=== PATIENT | female | born 1970 | race Caucasian/White ===

== ENCOUNTER 2022-01-09 12:33 | Emergency (ER) | payer OTHER, SELFPAY ==
[2022-01-09 12:40] VITALS: BP 107/67; PULSE 106; RESP 22; TEMP 37.4; O2SAT 90; BMI 26.3
== END 2022-01-09 16:12 | disposition left against medical advice (07) ==
PROVIDERS: PCP Physician Assistant Medical
DX: Z53.21 Procedure and treatment not carried out due to patient leaving prior to being seen by health care provider (principal)
CPT/HCPCS: 99281

== ENCOUNTER 2022-01-09 21:27 | Emergency (ER) | payer OTHER, SELFPAY ==
[2022-01-09] VITALS (8 sets, daily range): BP systolic 132; BP diastolic 78; PULSE 84–97; RESP 20; TEMP 36.7; O2SAT 86–99; BMI 22.3
--- NOTE | 2022-01-09 22:21 | CRLHL7_ITS ---
For Patients: As a result of the Cures Act, medical imaging exams and procedure reports are released immediately into your electronic medical record. You may view this report before your referring provider. If you have questions, please contact your health care provider. INDICATION: Cough and fever. TECHNIQUE: Chest 2 views. COMPARISON: June 19, 2021. FINDINGS: Cardiovascular and mediastinum: Cardiomediastinal silhouette is within normal limits. Lungs and pleural spaces: Bibasilar interstitial opacities are identified. No sign of pleural effusion. No pneumothorax. Bones and soft tissues: No significant findings. IMPRESSION: Bilateral basilar interstitial opacities, can be seen in setting of infection, aspiration or atelectasis. Dictated by Carrillo Schmitt MD @ 01/09/2022 11:48:45 PM (Electronically Signed)
--- NOTE | 2022-01-09 22:24 | ED.SOB ---
HPI - SOB/Dyspnea General Chief Complaint: Shortness of Breath/Dyspnea Stated Complaint: Respiratory infection Time Seen by Provider: 01/09/22 22:05 History of Present Illness HPI Narrative: 52-year-old woman presenting to the emergency department with complaint of increasing shortness of breath. No chest pain. No fever. She has also been having cough that is mildly productive. These symptoms have been increasing over the last week. She does endorse a history of COPD. Sounds as though has an asthma diagnosis. I note her oxygen saturation of 90% and that does not seem to be surprising to them. Apparently monitor at home. Unclear what her baseline actually is though. She notes she does have oxygen available but does not use it as well as other nebulizations that she says are just sold his does not think she should read pre COVID she said she got pneumonia and then was having to drag hormone his oxygen tanks and that was the 1st time she had used that. Is vaccinated and boosted for COVID. Continues to smoke cigarettes saying ?yeah yeah I know I should quit'. Her significant other who accompanies her here today apparently has managed to quit. Gestures to maxillary sinus area noting they have been full. Does have a history of psoriasis and ichthyosis. Her right ear has been bugging her. Related Data Home Medications Medication Instructions Recorded Confirmed albuterol sulfate 90 mcg/actuation 2 inhalation PRN 09/15/21 12/03/21 aerosol inhaler amlodipine 5 mg tablet mg PO DAILY 09/15/21 12/03/21 calcipotriene 0.005 % topical 0.005 topical BID 09/15/21 12/03/21 ointment famotidine 20 mg tablet mg PO DAILY 09/15/21 12/03/21 fluticasone propionate 100 2 inhalation BID 09/15/21 12/03/21 mcg/actuation blister powder for inhalation gabapentin 800 mg tablet mg PO BID PRN 09/15/21 12/03/21 ipratropium 0.5 mg-albuterol 3 mg 1 ml inhalation PRN 09/15/21 12/03/21 (2.5 mg base)/3 mL nebulization soln losartan 50 mg tablet mg PO DAILY 09/15/21 12/03/21 secukinumab 150 mg/mL subcutaneous 150 mg subcut Q2W 09/15/21 12/03/21 syringe urea 40 % topical cream 40 applic topical DAILY 09/15/21 12/03/21 secukinumab 150 mg/mL subcutaneous 150 mg subcut Q4W 10/22/21 12/03/21 syringe (Cosentyx) Previous Rx's Medication Instructions Recorded triamcinolone acetonide 0.1 % 1 applic topical BID #454 grams 09/15/21 topical cream secukinumab 150 mg/mL subcutaneous 300 mg (2 mL) subcut Q4W #2 mL 10/22/21 syringe (Cosentyx 300 mg/2 Syringes () ipratropium 0.5 mg-albuterol 3 mg 3 ml inhalation QID #90 mL 01/10/22 (2.5 mg base)/3 mL nebulization soln Allergies Allergy/AdvReac Type Severity Reaction Status Date / Time azithromycin Allergy Intermediate flu Verified 12/03/21 11:58 symptoms duloxetine Allergy Mild felt ill Verified 12/03/21 11:58 CI Pigment Blue 63 Allergy Mild felt ill Uncoded 12/03/21 11:58 Review of Systems Status of ROS: Reports: 10 or more systems reviewed and unremarkable except as noted in History and below [facility] Medical History Aneurysm Surgical History History of colonoscopy History of endometrial ablation History of lumpectomy of left breast History of operative procedure on hip History of right knee surgery History of surgery of head History of tubal ligation Status post colposcopy (10/09/21) Family History Unknown Alcohol dependence Cancer Other Diabetes High blood pressure Social History Narrative: Single, has a boyfriend alcohol ingestion, 1-4 drinks/week history of methamphetamine abuse- sober since 2016 smoker- half pack per day for several years Smoking Status: Current every day smoker What tobacco products do you use: cigarettes Smoking packs per day: 0.5 Smoking cigarettes per day: 10.0 Do you use any of these nicotine containing products: None Second hand tobacco smoke exposure: No How often do you have a drink containing alcohol: 2-3 times a week How many standard drinks containing alcohol do you have on a typical day: 3 or 4 How often do you have six or more drinks on one occasion: Never AUDIT-C Alcohol total score: 4 Non-prescribed substance use: denies use Exam Narrative: Exam Narrative: very pleasant. She is not particularly tachypneic. She is maybe mildly labored in breathing. Able to converse pretty easily. Voice is a little laryngitis. Hair is dyed bright red orange. Skin is warm and diffusely dry and scaling. Generally small stature. Oropharynx is unremarkable. Neck is supple. No lymphadenopathy. Face is without swelling or erythema. Not tender to palpation. TMs bilaterally are clear. , no edematous or scaling changes in the ear canals. Lungs with diminished sounds and movement. There is and expiratory crepitus. I do not appreciate any wheeze. Extremities are without edema. Cardiovascular regular rate and rhythm. Distant. Abdomen is protuberant soft and nontender. Const: Vital Signs, click to edit/add: Vital Signs - 24 hr 01/09/22 21:36 01/09/22 22:37 01/09/22 22:48 Temperature 98.0 F Pulse Rate [Right Pulse Oximeter] 90 97 Respiratory Rate 20 Blood Pressure [Ri ght Upper Arm] 132/78 Pulse Oximetry 90 93 86 L Oxygen Delivery Me thod Room Air Room Air Oxygen Flow Rate 01/09/22 23:07 01/09/22 23:08 01/09/22 23:24 Temperature Pulse Rate [Right Pulse Oximeter] 94 95 Respiratory Rate Blood Pressure [Ri ght Upper Arm] Pulse Oximetry 93 93 90 Oxygen Delivery Me thod Nasal Cannula Nasal Cannula Nasal Cannula Oxygen Flow Rate 1.5 1.5 1.5 01/09/22 23:43 01/09/22 23:59 Temperature Pulse Rate [Right Pulse Oximeter] 84 Respiratory Rate Blood Pressure [Ri ght Upper Arm] Pulse Oximetry 95 99 Oxygen Delivery Me thod Nasal Cannula Nasal Cannula Oxygen Flow Rate 1.5 1.5 Documenting provider has reviewed patient's vital signs: yes Course Course Hospital Course: Will screen for infectious etiology. She initially said that just need some antibiotics that they will kick this. Appears to be having COPD exacerbation as well. Will be receiving a DuoNeb and steroids pending results of imaging. Reevaluation(s) Reevaluation #1: Oxygen saturations improved with forehead measurements 0+ not as good. Mid 90s oxygen % more consistent with labs and clinical picture. Mildly elevated white count. Chest x-ray reviewed by me I think is primarily atelectatic changes though maybe with a wisp of infiltrate in left lower lung at the cardiac border. Radiology over-read as below IMPRESSION: Bilateral basilar interstitial opacities, can be seen in setting of infection, aspiration or atelectasis. Feeling better. I think it is good to be prudent in this case and provide antibiotics. She declined IV antibiotics partly with desire for earlier departure Vital Signs Vital signs: Initial Vital Signs Temperature 98.0 F 01/09/22 21:36 Temperature Source Temporal Artery Scan 01/09/22 21:36 Pulse Rate 90 01/09/22 21:36 Respiratory Rate 20 01/09/22 21:36 Blood Pressure 132/78 01/09/22 21:36 Blood Pressure Mean 96 01/09/22 21:36 Blood Pressure Position Sitting 01/09/22 21:36 Pulse Oximetry 90 01/09/22 21:36 Oxygen Delivery Method 01/09/22 21:36 Vital Signs Temperature 98.0 F 01/09/22 21:36 Pulse Rate 90 01/09/22 21:36 Respiratory Rate 20 01/09/22 21:36 Blood Pressure 132/78 01/09/22 21:36 Pulse Oximetry 90 01/09/22 21:36 Oxygen Delivery Method 01/09/22 21:36 Temperature 98.0 F 01/09/22 21:36 Pulse Rate 84 01/09/22 23:43 Respiratory Rate 20 01/09/22 21:36 Blood Pressure 132/78 01/09/22 21:36 Pulse Oximetry 99 01/09/22 23:59 Oxygen Delivery Method 01/09/22 23:59 Oxygen Flow Rate 1.5 01/09/22 23:59 MDM - SOB/Dyspnea MDM Narrative Medical decision making narrative: I think combination of being a smoker, ichthyosis and psoriasis leading to poor oximetry readings on initial evaluation. More central monitoring seems more in line with physical picture. Lab Data Attestation: I reviewed the patient's lab results. Labs: Lab Results 01/09/22 01/09/22 01/09/22 Range/Units 22:30 22:35 22:35 WBC 12.55 H (4.50-11.00) K/uL RBC 3.80 L (4.00-5.20) m/uL Hgb 12.0 (12.0-16.0) gm/dL Hct 36.3 (33.0-51.0) % MCV 96 (80-100) fL MCH 32 (26-34) pg MCHC 33 (32-36) gm/dL RDW Coeff of Naeem 11.8 (11.5-15.5) % Plt Count 339 (140-440) K/uL Neut % (Auto) 71.7 (42.0-72.0) % Lymph % (Auto) 16.7 L (20-44) % Bowman % (Auto) 10.0 (0.0-11.0) % Eos % (Auto) 0.3 (0.0-7.0) % Baso % (Auto) 0.4 (0.0-3.0) % Neut # (Auto) 9.00 H (1.7-7.0) K/uL Lymph # (Auto) 2.10 (0.90-2.90) K/uL Bowman # (Auto) 1.30 H (0.00-0.90) K/UL Eos # (Auto) 0.00 (0.00-0.50) K/uL Baso # (Auto) 0.10 (0.00-0.30) K/uL Abs Immat Gran (auto) 0.11 (0.00-0.30) K/uL VBG pH (7.32-7.43) VBG pCO2 (40-50) mmHG VBG pO2 (25-47) mmHG VBG HCO3 (21-28) mmol/L Sodium 137 (135-149) mmol/L Potassium 4.2 (3.6-5.1) mmol/L Chloride 99 (96-114) mmol/L Carbon Dioxide 27 (20-32) mmol/L BUN 11 (7-30) mg/dL Creatinine 0.7 (0.5-1.5) mg/dL Estimated Creat Clear 81.18 Estimated GFR 104 ml/min Glucose 113 (60-115) mg/dL Calcium 9.2 (8.4-10.6) mg/dL C-Reactive Protein 17.2 H (0.5-1.0) mg/dL NT-Pro-B Natriuret Pep (0-125) PG/mL SARS-CoV-2 (PCR) Negative SARS-CoV-2 (Negative) Influenza Type A (PCR) Negative PCR FLU A (Negative) Influenza Type B (PCR) Negative PCR FLU B (Negative) RSV (PCR) Negative PCR RSV (Negative) 01/09/22 01/09/22 Range/Units 22:35 22:35 WBC (4.50-11.00) K/uL RBC (4.00-5.20) m/uL Hgb (12.0-16.0) gm/dL Hct (33.0-51.0) % MCV (80-100) fL MCH (26-34) pg MCHC (32-36) gm/dL RDW Coeff of Naeem (11.5-15.5) % Plt Count (140-440) K/uL Neut % (Auto) (42.0-72.0) % Lymph % (Auto) (20-44) % Bowman % (Auto) (0.0-11.0) % Eos % (Auto) (0.0-7.0) % Baso % (Auto) (0.0-3.0) % Neut # (Auto) (1.7-7.0) K/uL Lymph # (Auto) (0.90-2.90) K/uL Bowman # (Auto) (0.00-0.90) K/UL Eos # (Auto) (0.00-0.50) K/uL Baso # (Auto) (0.00-0.30) K/uL Abs Immat Gran (auto) (0.00-0.30) K/uL VBG pH 7.424 (7.32-7.43) VBG pCO2 44 (40-50) mmHG VBG pO2 116.0 H (25-47) mmHG VBG HCO3 29 H (21-28) mmol/L Sodium (135-149) mmol/L Potassium (3.6-5.1) mmol/L Chloride (96-114) mmol/L Carbon Dioxide (20-32) mmol/L BUN (7-30) mg/dL Creatinine (0.5-1.5) mg/dL Estimated Creat Clear Estimated GFR ml/min Glucose (60-115) mg/dL Calcium (8.4-10.6) mg/dL C-Reactive Protein (0.5-1.0) mg/dL NT-Pro-B Natriuret Pep 127 H (0-125) PG/mL SARS-CoV-2 (PCR) (Negative) Influenza Type A (PCR) (Negative) Influenza Type B (PCR) (Negative) RSV (PCR) (Negative) Discharge Plan Discharge Clinical Impression: COPD exacerbation, Pneumonia Patient Disposition: Home w/ Parent or Adult Condition: Improved Additional Instructions: Stay hydrated. Use the DuoNeb inhalations 4 times daily over the next 4 days. (takes this nebulizer tubing and atomizer cup with you) It does not hurt to try the nebulization medications that you have. If you have effective DuoNebs, you can use them otherwise there is a new prescription waiting for at the pharmacy. Please follow-up in primary care as soon as possible to discuss optimal treatment for COPD. Take the prednisone as 60 mg tomorrow later today, then 40 mg daily for 3 days then 20 mg daily for 3 days. The prednisone and doxycycline from [facility]. Prescriptions: New ipratropium-albuterol 0.5 mg-3 mg(2.5 mg base)/3 mL solution for nebulization 3 ml inhalation QID Qty: 90 1RF No Action secukinumab 150 mg/mL syringe 150 mg subcut Q2W ipratropium-albuterol 0.5 mg-3 mg(2.5 mg base)/3 mL solution for nebulization 1 ml inhalation PRN albuterol sulfate 90 mcg/actuation HFA aerosol inhaler 2 inhalation PRN gabapentin 800 mg tablet PO BID PRN amlodipine 5 mg tablet PO DAILY losartan 50 mg tablet PO DAILY fluticasone propionate 100 mcg/actuation blister with device 2 inhalation BID urea 40 % cream 40 applic topical DAILY famotidine 20 mg tablet PO DAILY calcipotriene 0.005 % ointment 0.005 topical BID triamcinolone acetonide 0.1 % cream 1 applic topical BID Qty: 454 0RF Rx Instructions: apply to affected area Cosentyx 150 mg/mL syringe 150 mg subcut Q4W Cosentyx (2 Syringes) 150 mg/mL syringe 300 mg subcut Q4W Qty: 2 5RF Follow Up/Referrals: Alberta Delacruz PADaisyC [Primary Care Provider] - Stand Alone Forms: MyHealth Info Instructions
--- OUTSIDE RECORDS SUMMARY | 2022-01-09 22:27 | XMS_ITS | Encounter Summary ---
:1970 Author Organization [facility] Address [address] [place] [address] Care Team Providers Name Role Phone No Ref-Primary, Physician Primary Care Provider [phone] Reason for Visit Reason Comments Abdominal Pain Encounter Details Date Type Department Care Team Description 11/15/2018 [facility] Abdominal pain, [facility] Emergency Dep t [facility] generalized [address] [place], [place] [address] [facility] [id number] [facility] [phone] [place] [address] (Wo rk) Social History Tobacco Use Types Packs/Day Years Used Date Smoking Tobacco: Never Assessed Sex Assigned at Date Recorded Not on file documented as of this encounter Last Filed Vital Signs Vital Sign Reading Time Taken Comments Blood Pressure 165/100 11/15/2018 2:42 PM CDT Pulse - - Temperature 36.8 ??C (98.3 ??F) 11/15/2018 11:04 AM CDT Respiratory Rate 15 11/15/2018 2:42 PM CDT Oxygen Saturation 98% 11/15/2018 2:42 PM CDT Inhaled Oxygen Concentration - - Weight 60.8 kg (134 lb) 11/15/2018 11:04 AM CDT Height - - Body Mass Index - - documented in this encounter Discharge Instructions Discharge InstructionsPrem Fang MD - 11/15/2018 2:33 PM CDT Discharge Instructions Abdominal Pain Abdominal pain (belly pain) can be caused by many things. Your evaluation today does not show the exact cause for your pain. Your provider today has decided that it is unlikely your pain is due to a life threatening problem, or a problem requiring surgery or hospital admission. Sometimes those problems cannot be found right away, so it is very important that you follow up as directed. Sometimes only the changes which occur over time allow the cause of your pain to be found. Generally, every Emergency Department visit should have a follow-up clinic visit with either a primary or a specialty clinic/provider. Please follow-up as instructed by your emergency provider today. With abdominal pain, we often recommend very close follow-up, such as the following day. ADULTS: Return to the Emergency Department right away if: You get an oral temperature above 102oF or as directed by your provider. You have blood in your stools. This may be bright red or appear as black, tarry stools. You keep vomiting (throwing up) or cannot drink liquids. You see blood when you vomit. You cannot have a bowel movement or you cannot pass gas. Your stomach gets bloated or bigger. Your skin or the whites of your eyes look yellow. You faint. You have bloody, frequent or painful urination (peeing). You have new symptoms or anything that worries you. CHILDREN: Return to the Emergency Department right away if your child has any of the above-listed symptoms or the following: Pushes your hand away or screams/cries when his/her belly is touched. You notice your child is very fussy or weak. Your child is very tired and is too tired to eat or drink. Your child is dehydrated. Signs of dehydration can be: Significant change in the amount of wet diapers/urine. Your or child starts to have dry mouth and lips, or no saliva (spit) or tears. WOMEN: Return to the Emergency Department right away if you have any of the above-listed symptoms or the following: You have bleeding, leaking fluid or passing tissue from the vagina. You have worse pain or cramping, or pain in your shoulder or back. You have vomiting that will not stop. You have a temperature of 100oF or more. Your baby is not moving as much as usual. You faint. You get a bad headache with or without eye problems and abdominal pain. You have a seizure. You have unusual discharge from your vagina and abdominal pain. Abdominal pain is pretty common during . Your pain may or may not be related to your . You should follow-up closely with your OB provider so they can evaluate you and your baby. Untilyou follow-up with your regular provider, do the following: Avoid sex and do not put anything in your vagina. Drink clear fluids. Only take medications approved by your provider. MORE INFORMATION: Appendicitis: A possible cause of abdominal pain in any person who still has their appendix is acuteappendicitis. Appendicitis is often hard to diagnose. Testing does not always rule out early appendicitis or other causes of abdominal pain. Close follow-up with your provider and re-evaluations may beneeded to figure out the reason for your abdominal pain. Follow-up: It is very important that you make an appointment with your clinic and go to the appointment. If you do not follow-up with your primary provider, it may result in missing an important development which could result in permanent injury or disability and/or lasting pain. If there is any problem keeping your appointment, call your provider or return to the Emergency Department. Medications: Take your medications as directed by your provider today. Before using [id number], ask your provider and make sure to take the medications as directed. If you have any questions about medications, ask your provider. Diet: Resume your normal diet as much as possible, but do not eat fried, fatty or spicy foods while you have pain. Do not drink alcohol or have caffeine. Do not smoke tobacco. Probiotics: If you have been given an antibiotic, you may want to also take a probiotic pill or eat yogurt with live cultures. Probiotics have good bacteria to help your intestines stay healthy. Studies have shown that probiotics help prevent diarrhea (loose stools) and other intestine problems (including C. diff infection) when you take antibiotics. You can buy these without a prescription in the pharmacy section of the store. If you were given a prescription for medicine here today, be sure to read all of the information (including the package insert) that comes with your prescription. This will include important information about the medicine, its side effects, and any warnings that you need to know about. The pharmacist who fills the prescription can provide more information and answer questions you may have about the medicine. If you have questions or concerns that the pharmacist cannot address, please call or return to the Emergency Department. Remember that you can always come back to the Emergency Department if you are not able to see your regular provider in the amount of time listed above, if you get any new symptoms, or if there is anything that worries you. documented in this encounter ED Notes Va Caldwell RN - 11/15/2018 11:08 AM CDT Patient reports upper abdominal pain for a few months off and on. She also saw some blood when she wiped yesterday. Last BM this morning, brown and formed per patient. Some nausea but no vomiting. She just moved here from [place] and has not established primary care here and did not see anyone for this issue while up there. Prem Fang MD - 11/15/2018 10:58 AM CDT History Chief Complaint: Abdominal Pain HPI June Colin is a 48 year old female who presents with her boyfriend to the ED for evaluation of abdominal pain. The patient states that she has been experiencing diffuse, generalized abdominal pain intermittently for the past 3-4 months. She reports that the abdominal pain has become more frequent and worse, and that she has noticed red blood with wiping 2 times in the past few days, promptingher presentation to the ED. The patient also reports abdominal bloating and nausea. She denies any fever, vomiting, diarrhea, constipation, or black/bloody stool. She reports her last bowel movement was this morning. Allergies: The patient has no known drug allergies. Medications: The patient is not currently on any daily prescription medications. Past Medical History: The patient does not have any pertinent past medical history. Past Surgical History: The patient does not have any pertinent past surgical history. Family History: No past pertinent family history. Social History: Positive for tobacco use. Positive for alcohol use. Negative for drug use. Marital Status: Single [1] Review of Systems Constitutional: Negative for fever. Gastrointestinal: Positive for abdominal distention, abdominal pain, anal bleeding and nausea. Negative for blood in stool, constipation, diarrhea and vomiting. Genitourinary: Negative. Musculoskeletal: Negative. All other systems reviewed and are negative. Physical Exam Patient Vitals for the past 24 hrs: BP Temp Temp src Heart Rate Resp SpO2 Weight 11/15/18 1104 (!) 157/91 98.3 ??F (36.8 ??C) Temporal 75 14 98 % 60.8 kg (134 lb) Physical Exam General: Patient is alert and cooperative. HENT: Normal nose, oropharynx. Moist oral mucosa. Eyes: EOMI. Normal conjunctiva. Neck: Normal range of motion and appearance. Cardiovascular: Normal rate, regular rhythm and normal heart sounds. Pulmonary/Chest: Effort normal. No wheezing or crackles. Abdominal: Soft. No distension or tenderness. Musculoskeletal: Normal range of motion. No edema or tenderness. Neurological: oriented, normal strength, sensation, and coordination. Skin: Warm and dry. Chronic thickened, dried holbrook scaly rash. Psychiatric: Normal mood and affect. Normal behavior and judgement. Emergency Department Course Imaging: Radiographic findings were communicated with the patient who voiced understanding of the findings. CT Abdomen pelvis with contrast: No acute pathology in the abdomen or pelvis as per radiology. Laboratory: CBC: WBC: 6.3, HGB: 14.1, PLT: 244 CMP: Protein total: 6.7 (L), o/w WNL (Creatinine: 0.78) INR: 1.03 1147 Creatinine POCT: 0.78 1155 Creatinine POCT: 0.8 UA with Microscopic: AWNL Emergency Department Course: Nursing notes and vitals reviewed. ([id number]) I performed an exam of the patient as documented above. IV inserted. Medicine administered as documented above. Blood drawn. This was sent to the lab for further testing, results above. The patient was sent for an abdomen/pelvis CT while in the emergency department, findings above. 1434 I rechecked the patient and discussed the results of her workup thus far. Findings and plan explained to the Patient. Patient discharged home with instructions regarding supportive care, medications, and reasons to return. The importance of close follow-up was reviewed. Impression & Plan Medical Decision Making: Afebrile 48 year old female with several months of generalized abdominal pain. Exam is relatively benign, work up negative, including CT abdomen/pelvis and labs. No indication for additional imaging oradmission. Etiology unclear, no concern for GI bleed or evidence of serious condition. Recommend establishing primary care for re-check and further management as indicated. Diagnosis: ICD-10-CM 1. Abdominal pain, generalized R10.84 Disposition: The patient was discharged to home. Scribe Disclosure: I, Sailaja Marino, am serving as a scribe on 11/15/2018 at 11:27 AM to personally document services performed by Prem Fang MD based on my observations and the provider's statements to me. Sailaja Marino 11/15/2018 [facility] EMERGENCY [facility] Prem Fang MD 11/18/18 [id number] documented in this encounter Plan of Treatment Not on filedocumented as of this encounter Procedures Procedure Name Priority Date/Time Associated Comments Diagnosis CT ABDOMEN PELVIS W STAT 11/15/2018 12:51 Resu lts for this CONTRAST PM CDT procedure are i n the results section. ISTAT CREATININE POCT Routine 11/15/2018 11:55 Re sults for this AM CDT procedure are i n the results section. UA MACROSCOPIC WITH STAT 11/15/2018 11:51 Resu lts for this REFLEX TO MICRO AND AM CDT procedur e are in CULTURE the results section. CBC WITH PLATELETS & STAT 11/15/2018 11:47 Res ults for this DIFFERENTIAL AM CDT procedure are i n the results section. INR STAT 11/15/2018 11:47 Results for this AM CDT procedure are i n the results section. COMPREHENSIVE STAT 11/15/2018 11:47 Results fo r this METABOLIC PANEL AM CDT procedure ar e in the results section. documented in this encounter Results CT Abdomen Pelvis w Contrast (11/15/2018 12:51 PM CDT) Anatomical Region Laterality Modality Abdomen/Pelvis, SUBRAD CT BODY, UMP CT ABDOMEN PELVIS, Computed Tomography RAD CT Specimen (Source) Anatomical Location Collection Method / Collectio n Time Received Time / Laterality Volume Impressions 11/15/2018 1:11 PM CDT IMPRESSION: ??No acute pathology in the abdomen or pelvis. RAY ROBERTS MD Narrative 11/15/2018 1:[address] ABDOMEN AND PELVIS WITH CONTRAST ?? 11/15/2018 12:51 PM HISTORY: Abdominal distension. Abdominal pain, acute, generalized. TECHNIQUE: ??CT abdomen and pelvis with 68 mL Isovue-370 IV. Radiation dose for this scan was reduced using aut omated exposure control, adjustment of the mA and/or kV according to patient size, or iterative reconstruction technique. COMPARISON: None available. FINDINGS: Lung bases: Are clear. Abdomen/pelvis: No suspicious focal hepa tic mass. The gallbladder is unremarkable. No splenomegaly. No main p ancreatic ductal dilatation or definite solid pancreatic mass. No adren al nodules. No radiodense kidney stones or hydronephrosis. No abnormally dilated bowel loops. No si gnificant free fluid in the abdomen or pelvis. No free peritoneal or portal venous gas. Bilateral fallopian tube occlusion devices. Hypoat tenuating material within the endometrial cavity, likely represents bl ood breakdown products. The appendix is visualized and appears bubba l. Bones and soft tissue: No suspicious oss eous lesion. Chronic-appearing deformity of the left iliac wing. Procedure Note Ray Roberts MD - 11/15/2018Forma tting of this note might be different from the original. CT ABDOMEN AND PELVIS WITH CONTRAST 2018 12:51 PM HISTORY: Abdominal distension. Abdominal pain, acute, generalized. TECHNIQUE: CT abdomen and pelvis with 68 mL Isovue-370 IV. Radiation dose for this scan was reduced using aut omated exposure control, adjustment of the mA and/or kV according to patient size, or iterative reconstruction technique. COMPARISON: None available. FINDINGS: Lung bases: Are clear. Abdomen/pelvis: No suspicious focal hepa tic mass. The gallbladder is unremarkable. No splenomegaly. No main p ancreatic ductal dilatation or definite solid pancreatic mass. No adren al nodules. No radiodense kidney stones or hydronephrosis. No abnormally dilated bowel loops. No si gnificant free fluid in the abdomen or pelvis. No free peritoneal or portal venous gas. Bilateral fallopian tube occlusion devices. Hypoat tenuating material within the endometrial cavity, likely represents bl ood breakdown products. The appendix is visualized and appears bubba l. Bones and soft tissue: No suspicious oss eous lesion. Chronic-appearing deformity of the left iliac wing. IMPRESSION: No acute pathology in the ab domen or pelvis. RAY ROBERTS MD Prem Fang MD IMG CT ORDERABLES Creatinine POCT (11/15/2018 11:55 AM CDT) P athologist Signature Creatinine 0.8 0.52 - 11/15/2018 [facility] 1.04 mg/dL 11:59 AM CDT TEST, HANDHELD METER GFR Estimate 77 >60 11/15/2018 [facility] mL/min/{1. 11:59 AM CDT TEST, HANDHELD 73_m2} METER GFR Estimate If >90 >60 11/15/2018 [facility] C[facility] Black mL/min/{1. 11:59 AM CDT TEST, HANDHELD 73_m2} METER Specimen Anatomical Collection Method Collection Time Receive d Time (Source) Location / / Volume Laterality 11/15/2018 11:55 11/15/2018 AM CDT 11:59 AM CDT Prem Fang MD [facility] POCT Performing Organization Address City/State/ZIP Code Phon e Number [facility] POINT OF CARE TEST, HANDHELD METER POINT OF CARE TEST, HANDHELD METER UA reflex to Microscopic and Culture (11/15/2018 11:51 AM CDT) Patholo gist Method Time Signature Color Urine Light Yellow 11/15/2018 [facility] 12:11 PM [facility] Appearance Urine Clear 11/15/2018 [facility] 12:11 PM [facility] Glucose Urine Negative NEG^Negat 11/15/2018 [place] parker mg/dL 12:11 PM [facility] Bilirubin Urine Negative NEG^Negat 11/15/2018 [facility] parker 12:11 PM [facility] Ketones Urine Negative NEG^Negat 11/15/2018 [place]er mg/dL 12:11 PM [facility] Specific [place] 1.017 1.003 - 11/15/2018 [place] Urine 1.035 12:11 PM [facility] Blood Urine Negative NEG^Negat 11/15/2018 [facility] parker 12:11 PM [facility] pH Urine 7.0 5.0 - 7.0 11/15/2018 [place] pH 12:11 PM [facility] Protein Albumin Negative NEG^Negat 11/15/2018 [place] Urine parker mg/dL 12:11 PM [facility] Urobilinogen Normal 0.0 - 2.0 11/15/2018 [place] mg/dL mg/dL 12:11 PM [facility] Nitrite Urine Negative NEG^Negat 11/15/2018 [place] parker 12:11 PM [facility] Leukocyte Negative NEG^Negat 11/15/2018 [place] Esterase Urine parker 12:11 PM [facility] Source Midstream 11/15/2018 [place] Urine 11:52 AM [facility] Specimen (Source) Anatomical Collection Method Collection Time Re ceived Time Location / / Volume Laterality Examination of URINE SPECIMEN / 11/15/2018 11:51 11/15 midstream urine Unknown AM CDT 12:05 PM [facility] specimen (procedure) Prem Fang MD LAB - URINE ORDERABLES Performing Organization Address City/State/ZIP Code Phon e Number [place] [address] [address] [facility] [address] [address] [facility] [phone] (ABNORMAL) Comprehensive metabolic panel (11/15/2018 11:47 AM CDT) P athologist Signature Sodium 140 133 - 144 11/15/2018 [place] mmol/L 12:23 PM [facility] Potassium 4.0 3.4 - 5.3 11/15/2018 [place] mmol/L 12:23 PM [facility] Chloride 108 94 - 109 11/15/2018 [place] mmol/L 12:23 PM [facility] Carbon Dioxide 27 20 - 32 11/15/2018 [place] mmol/L 12:32 PM [facility] Anion Gap 5 3 - 14 11/15/2018 [place] mmol/L 12:32 PM [facility] Glucose 84 70 - 99 11/15/2018 [place] mg/dL 12:32 PM [facility] Urea Nitrogen 9 7 - 30 11/15/2018 [place] mg/dL 12:32 PM [facility] Creatinine 0.78 0.52 - 11/15/2018 [place] 1.04 mg/dL 12:32 PM [facility] GFR Estimate 89 >60 11/15/2018 [place] mL/min/{1. 12:32 PM [facility] 73_m2} [facility]OSPITAL Comment: Non GFR Calc Starting 02/28/2018, serum creatinine ba sed estimated GFR (eGFR) will be calculated using the Chronic Kidney Dise [facility] Epidemiology Collaboration (CKD-EPI) equation. GFR Estimate If >90 >60 mL/min/{1.73_m2} 11/15/2018 12:32 PM [facility] Comment: GFR Calc Starting 02/28/2018, serum creatinine ba sed estimated GFR (eGFR) will be calculated using the Chronic Kidney Dise [facility] Epidemiology Collaboration (CKD-EPI) equation. Calcium 8.5 8.5 - 10.1 11/15/2018 12:32 PM [facility] mg/dL [facility] Bilirubin Total 0.5 0.2 - 1.3 mg/dL 11/15/2018 12:32 P [facility] Albumin 3.8 3.4 - 5.0 g/dL 11/15/2018 12:32 PM [facility] Protein Total 6.7 (L) 6.8 - 8.8 g/dL 11/15/2018 12:32 PM [facility] Alkaline Phosphatase 75 40 - 150 U/L 11/15/2018 12:32 PM [facility] ALT 21 0 - 50 U/L 11/15/2018 12:32 PM [facility] AST 13 0 - 45 U/L 11/15/2018 12:32 PM [facility] Specimen Anatomical Collection Method Collection Time Receive d Time (Source) Location / / Volume Laterality Blood specimen 11/15/2018 11:47 9 (specimen) AM CDT 11:58 AM CDT Prem Fang MD LAB - BLOOD ORDERABLES Performing Organization Address City/State/ZIP Code Phon e Number M [facility] [address] [address] [facility] [address] [address] [address], [facility] [phone] [facility] [address] [address], [facility] [phone] HOSPITAL INR (11/15/2018 11:47 AM CDT) athologist Signature INR 1.03 0.86 - 1.14 11/15/2018 [facility] 12:19 PM [facility] Specimen Anatomical Collection Method Collection Time Receive d Time (Source) Location / / Volume Laterality Blood specimen 11/15/2018 11:47 9 (specimen) AM CDT 11:58 AM CDT Prem Fang MD LAB - BLOOD ORDERABLES Performing Organization Address City/State/ZIP Code Phon e Number [place] [address] [address] [place], [place] [address] [phone] [place] [address] [phone] CBC with platelets differential (11/15/2018 11:47 AM CDT) [facility] gist Method Time Signature WBC 6.3 4.0 - 11/15/2018 [facility] 11.0 12:10 PM [facility] 10e9/L [facility] RBC Count 4.54 3.8 - 5.2 11/15/2018 [facility] 10e12/L 12:10 PM [facility] Hemoglobin 14.1 11.7 - 11/15/2018 [facility] 15.7 g/dL 12:10 PM [facility] Hematocrit 44.0 35.0 - 11/15/2018 [facility] 47.0 % 12:10 PM [facility] MCV 97 78 - 100 11/15/2018 [facility] fl 12:10 PM [facility] MCH 31.1 26.5 - 11/15/2018 [facility] 33.0 pg 12:10 PM [facility] MCHC 32.0 31.5 - 11/15/2018 [facility] 36.5 g/dL 12:10 PM [facility] RDW 12.8 10.0 - 11/15/2018 [facility] 15.0 % 12:10 PM [facility] Platelet Count 244 150 - 450 11/15/2018 [facility] 10e9/L 12:10 PM [facility] Diff Method Automated 11/15/2018 [facility] Method 12:10 PM [facility] % Neutrophils 58.3 % 11/15/2018 [facility] 12:10 PM [facility] % Lymphocytes 29.4 % 11/15/2018 [place] 12:10 PM [facility] % Monocytes 10.2 % 11/15/2018 [facility] 12:10 PM [facility] % Eosinophils 0.8 % 11/15/2018 [place] 12:10 PM [facility] % Basophils 0.8 % 11/15/2018 [place] 12:10 PM [facility] % Immature 0.5 % 11/15/2018 [place] Granulocytes 12:10 PM [facility] Nucleated RBCs 0 0 /100 11/15/2018 [place] 12:10 PM [facility] Absolute 3.7 1.6 - 8.3 11/15/2018 [place] Neutrophil 10e9/L 12:10 PM [facility] Absolute 1.9 0.8 - 5.3 11/15/2018 [place] Lymphocytes 10e9/L 12:10 PM [facility] Absolute 0.6 0.0 - 1.3 11/15/2018 [place] Monocytes 10e9/L 12:10 PM [facility] Absolute 0.1 0.0 - 0.7 11/15/2018 [place] Eosinophils 10e9/L 12:10 PM [facility] Absolute 0.1 0.0 - 0.2 11/15/2018 [place] Basophils 10e9/L 12:10 PM [facility] Abs Immature 0.0 0 - 0.4 11/15/2018 [place] Granulocytes 10e9/L 12:10 PM [facility] Absolute 0.0 11/15/2018 [place] Nucleated RBC 12:10 PM [facility] Specimen Anatomical Collection Method Collection Time Receive d Time (Source) Location / / Volume Laterality Blood specimen 11/15/2018 11:47 9 (specimen) AM CDT 11:58 AM CDT Prem Fang MD LAB - BLOOD ORDERABLES Performing Organization Address City/State/ZIP Code Phon e Number [place] [address] [address] [place], [place] [address] [phone] [place] [address] [phone] documented in this encounter Visit Diagnoses Diagnosis Abdominal pain, generalized documented in this encounter Administered Medications Inactive Administered Medications - up to 3 most recent administrations Medication Order MAR Action Action Date Dose Rate Site CT scan flush Given 11/15/2018 12:40 PM CDT 57 mLs Intravenous, 100 mL, ONCE, On Tue11/15/18 at 1241, For 1 dose, This entry is for use by Radiology to intermittently used as a flush in patients receiving a CT scan. iopamidol (ISOVUE-370) solution 100 mL Given 11/15/2018 12:40 PM CDT 68 mLs 100 mL, Intravenous, ONCE, On Tue11/15/18 at 1241, For 1 dose documented in this encounter Active and Recently Administered Medications Times are shown in CDT. Scheduled Medication Order 11/13/2018 11/14/2018 11/15/2018 CT scan flush (COMPLETED) 1240 ( Given - Provider: Jaja Aldana) Intravenous, 100 mL, ONCE, Tue11/15/18 at 1241, For 1 dose, This entry is for use by Radiology to intermittently used as a flush in patients receiving a CT scan. iopamidol (ISOVUE-370) solution 100 mL (COMPLETED) 1240 (Given - Provider: Jaja Aldana) 100 mL, Intravenous, ONCE, Tue11/15/18 at 1241, For 1 dose documented in this encounter Care Teams Reporting Specialist Relationship Specialty Start Date End Date No Ref-Primary, Physician PCP - General 11/15/18 documented as of this encounter
--- OUTSIDE RECORDS SUMMARY | 2022-01-09 22:27 | XMS_ITS | Encounter Summary ---
:1970 Author Organization [facility] Address [address] [place] [id number] Care Team Providers Name Role Phone No Ref-Primary, Physician Primary Care Provider [phone] Encounter Details Date Type Department Care Team Description 11/15/2018 Travel Social History Tobacco Use Types Packs/Day Years Used Date Smoking Tobacco: Never Assessed Sex Assigned at Date Recorded Not on file documented as of this encounter Plan of Treatment Not on filedocumented as of this encounter Visit Diagnoses Not on filedocumented in this encounter Care Teams Machine Former Relationship Specialty Start Date End Date No Ref-Primary, Physician PCP - General 11/15/18 documented as of this encounter
--- OUTSIDE RECORDS SUMMARY | 2022-01-09 22:27 | XMS_ITS | Clinical Summary ---
:1970 Author Organization [facility] Address [address] [place] [address] Care Team Providers Name Role Phone No Ref-Primary, Physician Primary Care Provider [phone] Allergies No known active allergies Social History Tobacco Use Types Packs/Day Years Used Date Smoking Tobacco: Never Assessed Sex Assigned at Date Recorded Not on file Last Filed Vital Signs Vital Sign Reading [...] - - Body Mass Index - - Plan of Treatment Not on file Insurance Payer Benefit Plan / Subscriber ID Effective Dates Phone Addre ss Type Group MEDICARE MEDICARE [id number] 2005-Amanda [phone] ATTN CL [employer] Medicare t [address] [place] [address] Care Teams Tour Operator Relationship Specialty Start Date End Date No Ref-Primary, Physician PCP - General 11/15/18
[2022-01-09] MEDS: IPRAT-ALBUT 0.5-2.5 MG/3 ML NEB 1 NEB IH (22:28)
--- NOTE | 2022-01-09 22:50 | ED.NURSE ---
Pt O2 sats dropped back to 86% on RA after neb finished. MD notified, MD ordered O2 titrated to keep pt >90%. O2 applied to pt NC.
[2022-01-09 22:51] LABS: HCO3 VBG 29 mmol/L (21-28); PCO2 VBG 44 mmHG (40-50); pH VBG 7.424 (7.32-7.43)
[2022-01-09 22:54] LABS: Basophils Percent Auto 0.4 % (0.0-3.0); Eosinophils Percent Auto 0.3 % (0.0-7.0); Hematocrit 36.3 % (33.0-51.0); Immature Granulocytes Abs Auto 0.11 K/uL (0.00-0.30); Lymphocytes Percent Auto 16.7 % (20-44); Mean Corpuscular HGB Conc 33 gm/dL (32-36); Mean Corpuscular Hemoglobin 32 pg (26-34); Mean Corpuscular Volume 96 fL (80-100); Neutrophils Percent Auto 71.7 % (42.0-72.0); Platelet Count* 339 K/uL (140-440); RDW Coefficient of Variation % 11.8 % (11.5-15.5); Slide Review Reflex No; White Blood Count* 12.55 K/uL (4.50-11.00)
[2022-01-09 23:07] LABS: Chloride* 99 mmol/L (96-114); Potassium* 4.2 mmol/L (3.6-5.1); Sodium* 137 mmol/L (135-149)
[2022-01-09 23:09] LABS: Creatinine* 0.7 mg/dL (0.5-1.5); Est. Creatinine Clearance* 81.18; Estimated Glomerular Filt Rate 104 ml/min
[2022-01-09 23:10] LABS: Blood Urea Nitrogen* 11 mg/dL (7-30); Calcium* 9.2 mg/dL (8.4-10.6); Carbon Dioxide* 27 mmol/L (20-32); Glucose* 113 mg/dL (60-115)
[2022-01-09 23:13] LABS: PCR FLU A Negative PCR FLU A (Negative); PCR FLU B Negative PCR FLU B (Negative); PCR RSV Negative PCR RSV (Negative)
[2022-01-09 23:19] LABS: NT Pro B Type NatriureticPept* 127 PG/mL (0-125)
--- NOTE | 2022-01-09 23:23 | ED.NURSE ---
Pt O2 titrated to 1.5L to maintain at/above 90%.
[2022-01-09 23:31] LABS: SARS PCR* Negative SARS-CoV-2 (Negative)
[2022-01-09 23:31] LABS: C Reactive Protein* 17.2 mg/dL (0.5-1.0)
--- NOTE | 2022-01-09 23:59 | ED.NURSE ---
Pt O2 at 99-100% on 1.5L BRENDA. notified. O2 DC'd.
[2022-01-10] MEDS: METHYLPREDNISOLONE SOD SUCC 62.5 MG/ML (125) 93.75 MG IVP (00:21)
== END 2022-01-10 00:35 | disposition home or self-care (01) ==
PROVIDERS: Emergency Provider Family Medicine; PCP Physician Assistant Medical
DX: J44.1 Chronic obstructive pulmonary disease with (acute) exacerbation (principal); J18.9 Pneumonia, unspecified organism
CPT/HCPCS: 36415; 71046; 80048; 82803; 83880; 85025; 86140; 87502; 87634; 87635; 94640; 94761; 99284; 99285; J2930

== ENCOUNTER 2023-01-20 13:57 | Emergency (ER) | payer OTHER, SELFPAY ==
[2023-01-20 14:04] VITALS: BP 102/74; PULSE 84; RESP 22; TEMP 36.5; O2SAT 91; BMI 26.3
--- NOTE | 2023-01-20 14:26 | CRLHL7_ITS ---
For Patients: As a result of the Century Cures Act, medical imaging exams and procedure reports are released immediately into your electronic medical record. You may view this report before your referring provider. If you have questions, please contact your health care provider. INDICATION: SOB, CONCERN FOR BRONCHITIS. TECHNIQUE: Chest 2 views. COMPARISON: January 09, 2022. FINDINGS: Cardiovascular and mediastinum: Cardiomediastinal silhouette is within normal limits. Lungs and pleural spaces: Perihilar interstitial opacities and peribronchial cuffing. No sign of pleural effusion. No pneumothorax. Bones and soft tissues: No significant findings. IMPRESSION: Perihilar interstitial opacities and peribronchial cuffing, can be seen in the setting of bronchitis.. Dictated by Carrillo Schmitt MD @ 01/20/2023 3:46:23 PM (Electronically Signed)
--- NOTE | 2023-01-20 14:47 | ED_ITS ---
HPI - SOB/Dyspnea General Date Seen: 01/20/23 Chief Complaint: Shortness of Breath/Dyspnea Stated Complaint: shortness of breath Time Seen by Provider: 01/20/23 14:10 Source: patient Mode of arrival: ambulatory Limitations: no limitations History of Present Illness HPI Narrative: Patient is a 53-year-old female presenting to the emergency department for shortness of breath. She states the symptoms are going to her past history is Related Data Home Medications Medication Instructions Recorded Confirmed calcipotriene 0.005 % topical 0.005 topical BID 09/15/21 07/20/22 ointment famotidine 20 mg tablet mg PO DAILY 09/15/21 07/20/22 ipratropium 0.5 mg-albuterol 3 mg 1 ml inhalation PRN 09/15/21 07/20/22 (2.5 mg base)/3 mL nebulization soln urea 40 % topical cream 40 applic topical DAILY 09/15/21 07/20/22 Previous Rx's Medication Instructions Recorded triamcinolone acetonide 0.1 % 1 applic topical BID #454 grams 09/15/21 topical cream ipratropium 0.5 mg-albuterol 3 mg 3 ml inhalation QID #90 mL 01/10/22 (2.5 mg base)/3 mL nebulization soln tapinarof 1 % topical cream (Vtama) 1 applic topical QDAY #60 grams 06/08/22 albuterol sulfate 90 mcg/actuation 2 puff PO Q4H PRN shortness of 06/14/22 aerosol inhaler breath or wheezing #8.5 grams disposable gloves (Nitrile Exam #200 ea 12/09/22 Gloves) secukinumab 150 mg/mL subcutaneous 300 mg (2 mL) subcut Q4W #2 mL 12/09/22 syringe (Cosentyx 300 mg/2 Syringes () amlodipine 5 mg tablet 5 mg PO DAILY #90 tabs 01/04/23 fluticasone propionate 100 2 inh inhalation BID #60 ea 01/04/23 mcg/actuation blister powder for inhalation gabapentin 800 mg tablet 800 mg PO BID PRN back pain #180 01/04/23 tabs losartan 50 mg tablet 50 mg PO DAILY #90 tabs 01/04/23 tramadol 50 mg tablet 50 mg PO QDAY #30 tabs 01/04/23 amoxicillin 875 mg tablet 875 mg PO BID #10 tabs 01/20/23 prednisone 20 mg tablet 40 mg (2 x 20 mg) PO DAILY #10 tabs 01/20/23 Allergies Allergy/AdvReac Type Severity Reaction Status Date / Time azithromycin Allergy Intermediate flu Verified 01/20/23 14:03 symptoms duloxetine Allergy Mild felt ill Verified 01/20/23 14:03 [facility] Medical History (Updated 01/20/23 @ 15:56 by Adan Silva, ) Aneurysm ?I72.9 - Aneurysm of unspecified site (ICD-10) Psoriasis ?L40.9 - Psoriasis, unspecified (ICD-10) Surgical History History of surgery of head ?Z98.890 - Other specified postprocedural states (ICD-10) History of colonoscopy ?Z98.890 - Other specified postprocedural states (ICD-10) Status post colposcopy (10/09/21) ?Z98.890 - Other specified postprocedural states (ICD-10) History of tubal ligation ?Z98.51 - Tubal ligation status (ICD-10) History of right knee surgery ?Z98.890 - Other specified postprocedural states (ICD-10) History of operative procedure on hip ?Z98.890 - Other specified postprocedural states (ICD-10) History of lumpectomy of left breast ?Z98.890 - Other specified postprocedural states (ICD-10) History of endometrial ablation ?Z98.890 - Other specified postprocedural states (ICD-10) Family History Unknown Alcohol dependence Cancer Other Diabetes High blood pressure Social History Narrative: Single, has a boyfriend alcohol ingestion, 1-4 drinks/week history of methamphetamine abuse- sober since 2016 smoker- half pack per day for several years Smoking Status: Current every day smoker What tobacco products do you use: cigarettes Smoking packs per day: 0.5 Smoking cigarettes per day: 10.0 Years smoked: 38 Smoking pack-years: 19.00 Do you use any of these nicotine containing products: None Second hand tobacco smoke exposure: Yes How often do you have a drink containing alcohol: 2-3 times a week How many standard drinks containing alcohol do you have on a typical day: 3 or 4 How often do you have six or more drinks on one occasion: Never AUDIT-C Alcohol total score: 4 Non-prescribed substance use: denies use service: No Exam Const: Vital Signs, click to edit/add: Vital Signs - 24 hr 01/20/23 14:04 Temperature 97.7 F Pulse Rate [Pulse Oximeter] 84 Respiratory Rate 22 Blood Pressure [Le ft Upper Arm] 102/74 Pulse Oximetry 91 Oxygen Delivery Me thod Room Air Course Vital Signs Vital signs: Initial Vital Signs Temperature 97.7 F 01/20/23 14:04 Temperature Source Temporal Artery Scan 01/20/23 14:04 Pulse Rate 84 01/20/23 14:04 Pulse Rhythm Regular 01/20/23 14:04 Respiratory Rate 22 01/20/23 14:04 Blood Pressure 102/74 01/20/23 14:04 Blood Pressure Mean 83 01/20/23 14:04 Blood Pressure Position Supine 01/20/23 14:04 Pulse Oximetry 91 01/20/23 14:04 Oxygen Delivery Method Room Air 01/20/23 14:04 Vital Signs Temperature 97.7 F 01/20/23 14:04 Pulse Rate 84 01/20/23 14:04 Respiratory Rate 22 01/20/23 14:04 Blood Pressure 102/74 01/20/23 14:04 Pulse Oximetry 91 01/20/23 14:04 Oxygen Delivery Method Room Air 01/20/23 14:04 Temperature 97.7 F 01/20/23 14:04 Pulse Rate 84 01/20/23 14:04 Respiratory Rate 22 01/20/23 14:04 Blood Pressure 102/74 01/20/23 14:04 Pulse Oximetry 91 01/20/23 14:04 Oxygen Delivery Method Room Air 01/20/23 14:04 MDM - SOB/Dyspnea MDM Narrative Medical decision making narrative: Patient is 53 female presented emergency depart for shortness of breath. Symptoms have a glass past few days patient states this happens to her every year and she was told she has bronchitis. She states she has issues discharged on amoxicillin for it. Has not been using her breathing treatment at home. She is still smoking. Consider symptoms were ordered BMP, COVID/flu, CBC, troponin. We will give her DuoNebs and a dose of Solu-Medrol for her COPD. Chest x-ray ordered. Lab work returns for no acute abnormalities. She is cold and flu negative. Patient's chest x-ray returned showing signs of bronchitis. Has consistently s ymptoms. She is doing much better after the DuoNebs. Lungs are now clear. She will be discharged home with prednisone and amoxicillin considering she is also having associated COPD exacerbation. She states the azithromycin cause allergic reactions are. She already has breathing treatments with nebulizer at home but is not tender prescription. She will be discharged home she is agreeable this plan. Lab Data Labs: Lab Results 01/20/23 Range/Units 14:43 WBC 9.42 (4.50-11.00) K/uL RBC 6.02 H (4.00-5.20) m/uL Hgb 18.4 H (12.0-16.0) gm/dL Hct 56.3 H (33.0-51.0) % MCV 94 (80-100) fL MCH 31 (26-34) pg MCHC 33 (32-36) gm/dL RDW Coeff of Naeem 11.8 (11.5-15.5) % Plt Count 159 (140-440) K/uL Neut % (Auto) 66.1 (42.0-72.0) % Lymph % (Auto) 24.5 (20-44) % [place] % (Auto) 7.4 (0.0-11.0) % Eos % (Auto) 0.8 (0.0-7.0) % Baso % (Auto) 0.2 (0.0-3.0) % Neut # (Auto) 6.22 (1.7-7.0) K/uL Lymph # (Auto) 2.31 (0.90-2.90) K/uL [place] # (Auto) 0.70 (0.00-0.90) K/UL Eos # (Auto) 0.08 (0.00-0.50) K/uL Baso # (Auto) 0.02 (0.00-0.30) K/uL Abs Immat Gran (auto) 0.09 (0.00-0.30) K/uL Imm/Tot Granulo (auto) 1.0 % Sodium 138 (135-149) mmol/L Potassium 3.9 (3.6-5.1) mmol/L Chloride 105 (96-114) mmol/L Carbon Dioxide 21 (20-32) mmol/L Anion Gap 12 (7-15) mEq/L BUN 9 (7-30) mg/dL Creatinine 0.7 (0.5-1.5) mg/dL Estimated Creat Clear 86.52 Estimated GFR 103 ml/min Glucose 81 (60-115) mg/dL Calcium 9.3 (8.4-10.6) mg/dL Troponin I < 0.01 L (0.01-0.04) ng/mL SARS-CoV-2 (PCR) Negative SARS-CoV-2 (Negative) Influenza Type A (PCR) Negative PCR FLU A (Negative) Influenza Type B (PCR) Negative PCR FLU B (Negative) Imaging Data Chest x-ray: Radiologist's impression: Perihilar interstitial opacities and peribronchial cuffing, can be seen in the setting of bronchitis.. Dictated by Carrillo Schmitt MD @ 01/20/2023 3:46:23 PM ECG Data Attestation: I personally reviewed and interpreted this ECG as follows: Prior ECG tracings: not available for review Interpretation: Normal sinus rhythm rate 86 beats per minute, normal intervals, no axis, no ST or T-wave abnormalities. Discharge Plan Discharge Clinical Impression: Bronchitis Chronic obstructive pulmonary disease Qualifiers: COPD type: COPD with acute exacerbation Qualified Code(s): J44.1 - Chronic obstructive pulmonary disease with (acute) exacerbation Patient Disposition: Home, Self-Care Condition: Improved Instructions: Acute Bronchitis (ED) Additional Instructions: Take medication as prescribed. Return for new worsening symptoms. Follow up with the primary care provider. Make sure to use her home breathing treatments. Prescriptions: New prednisone 20 mg tablet 40 mg PO DAILY Qty: 10 0RF amoxicillin 875 mg tablet 875 mg PO BID Qty: 10 0RF No Action ipratropium-albuterol 0.5 mg-3 mg(2.5 mg base)/3 mL solution for nebulization 1 ml inhalation PRN urea 40 % cream 40 applic topical DAILY famotidine 20 mg tablet PO DAILY calcipotriene 0.005 % ointment 0.005 topical BID triamcinolone acetonide 0.1 % cream 1 applic topical BID Qty: 454 0RF Rx Instructions: apply to affected area Vtama 1 % cream 1 applic topical QDAY Qty: 60 0RF ipratropium-albuterol 0.5 mg-3 mg(2.5 mg base)/3 mL solution for nebulization 3 ml inhalation QID Qty: 90 1RF albuterol sulfate 90 mcg/actuation HFA aerosol inhaler 2 puff PO Q4H PRN (Reason: shortness of breath or wheezing) Qty: 8.5 0RF (DME) disposable gloves [Nitrile Exam Gloves] Misc See Rx Instructions .Route Qty: 200 0RF Rx Instructions: As directed Cosentyx (2 Syringes) 150 mg/mL syringe 300 mg subcut Q4W Qty: 2 5RF amlodipine 5 mg tablet 5 mg PO DAILY Qty: 90 0RF fluticasone propionate 100 mcg/actuation blister with device 2 inh inhalation BID Qty: 60 2RF gabapentin 800 mg tablet 800 mg PO BID PRN (Reason: back pain) Qty: 180 0RF losartan 50 mg tablet 50 mg PO DAILY Qty: 90 0RF tramadol 50 mg tablet 50 mg PO QDAY Qty: 30 0RF Follow Up/Referrals: Alberta Delacruz PA-C [Primary Care Provider] - Stand Alone Forms: [facility] Info Instructions
[2023-01-20 15:15] LABS: Basophils Absolute Auto 0.02 K/uL (0.00-0.30); Basophils Percent Auto 0.2 % (0.0-3.0); Eosinophils Absolute Auto 0.08 K/uL (0.00-0.50); Eosinophils Percent Auto 0.8 % (0.0-7.0); Hematocrit 56.3 % (33.0-51.0); Hemoglobin* 18.4 gm/dL (12.0-16.0); Immature Granulocytes Abs Auto 0.09 K/uL (0.00-0.30); Lymphocytes Absolute Auto 2.31 K/uL (0.90-2.90); Lymphocytes Percent Auto 24.5 % (20-44); Mean Corpuscular HGB Conc 33 gm/dL (32-36); Mean Corpuscular Hemoglobin 31 pg (26-34); Mean Corpuscular Volume 94 fL (80-100); Monocytes Percent Auto 7.4 % (0.0-11.0); Neutrophils Absolute Auto 6.22 K/uL (1.7-7.0); Neutrophils Percent Auto 66.1 % (42.0-72.0); Platelet Count* 159 K/uL (140-440); RDW Coefficient of Variation % 11.8 % (11.5-15.5); Red Blood Count 6.02 m/uL (4.00-5.20); White Blood Count* 9.42 K/uL (4.50-11.00)
[2023-01-20 15:18] LABS: Slide Review Reflex No
[2023-01-20 15:20] LABS: Chloride* 105 mmol/L (96-114)
[2023-01-20 15:21] LABS: Potassium* 3.9 mmol/L (3.6-5.1); Sodium* 138 mmol/L (135-149)
[2023-01-20 15:23] LABS: Creatinine* 0.7 mg/dL (0.5-1.5); Est. Creatinine Clearance* 86.52; Estimated Glomerular Filt Rate 103 ml/min
[2023-01-20 15:24] LABS: Anion Gap 12 mEq/L (7-15); Blood Urea Nitrogen* 9 mg/dL (7-30); Calcium* 9.3 mg/dL (8.4-10.6); Carbon Dioxide* 21 mmol/L (20-32); Glucose* 81 mg/dL (60-115)
[2023-01-20 15:34] LABS: PCR FLU A Negative PCR FLU A (Negative); PCR FLU B Negative PCR FLU B (Negative)
[2023-01-20 15:38] LABS: Troponin I* < 0.01 ng/mL (0.01-0.04)
[2023-01-20 15:39] LABS: SARS PCR* Negative SARS-CoV-2 (Negative)
== END 2023-01-20 16:02 | disposition home or self-care (01) ==
PROVIDERS: Emergency Provider Student in an Organized Health Care Education/Training Program; PCP Physician Assistant Medical
DX: J40 Bronchitis, not specified as acute or chronic (principal)
CPT/HCPCS: 36415; 71046; 80048; 84484; 85025; 87631; 93005; 99283; 99284

== ENCOUNTER 2023-01-25 09:20 | Outpatient (CLI) | payer OTHER, SELFPAY | END 2023-01-25 09:21 | disposition home or self-care (01) | PROVIDERS: PCP Physician Assistant Medical; Visit Provider Physician Assistant Medical | DX: E78.5 Hyperlipidemia, unspecified (principal); I10 Essential (primary) hypertension; Z13.29 Encounter for screening for other suspected endocrine disorder | CPT/HCPCS: 80061; 84443; 84450; 84460 ==

== ENCOUNTER 2023-11-29 19:36 | Emergency (ER) | payer MEDICARE, SELFPAY ==
[2023-11-29 19:46] VITALS: BP 136/87; PULSE 87; RESP 18; TEMP 37.2; O2SAT 97; BMI 26.3
--- NOTE | 2023-11-29 20:01 | ED_ITS ---
HPI - Ear Problem General Time Seen by Provider: 20:01 Date Seen: 11/29/23 Chief complaint: Ear/Nose/Throat Problem Stated complaint: Plugged and swollen ear Time Seen by Provider: 11/29/23 20:01 Source: patient Mode of arrival: ambulatory Limitations: no limitations History of Present Illness HPI Narrative: 53-year-old female who comes in today with ear pain and fullness. This been going on a couple weeks. Patient uses Q-tips and also has been using an ear rinse. decreased hearing, no drainage, no fever, no injury. No diabetes Related Data Home Medications ?Medication ?Instructions ?Recorded ?Confirmed urea 40 % topical cream 40 applic topical DAILY 09/15/21 04/04/23 Previous Rx's ?Medication ?Instructions ?Recorded ipratropium 0.5 mg-albuterol 3 mg 3 ml inhalation QID #90 mL 01/10/22 (2.5 mg base)/3 mL nebulization soln disposable gloves (Nitrile Exam #200 ea 12/09/22 Gloves) albuterol sulfate 90 mcg/actuation 2 puff PO Q4H PRN shortness of 01/25/23 aerosol inhaler breath or wheezing #8.5 grams azathioprine 50 mg tablet (Imuran) 50 mg PO BID #60 tabs 03/03/23 triamcinolone acetonide 0.1 % 1 applic topical BID #454 grams 03/03/23 topical cream amlodipine 5 mg tablet 5 mg PO DAILY #90 tabs 05/24/23 gabapentin 800 mg tablet 800 mg PO BID PRN back pain #180 07/13/23 tabs Allergies Allergy/AdvReac Type Severity Reaction Status Date / Time azithromycin Allergy Intermediate flu Verified 04/04/23 09:53 symptoms duloxetine Allergy Mild felt ill Verified 04/04/23 09:53 [facility] Medical History (Updated 11/29/23 @ 20:12 by Prem Evans MD) Bronchitis ?J40 - Bronchitis, not specified as acute or chronic (ICD-10) Aneurysm ?I72.9 - Aneurysm of unspecified site (ICD-10) Surgical History History of surgery of head ?Z98.890 - Other specified postprocedural states (ICD-10) History of colonoscopy ?Z98.890 - Other specified postprocedural states (ICD-10) Status post colposcopy (10/09/21) ?Z98.890 - Other specified postprocedural states (ICD-10) History of tubal ligation ?Z98.51 - Tubal ligation status (ICD-10) History of right knee surgery ?Z98.890 - Other specified postprocedural states (ICD-10) History of operative procedure on hip ?Z98.890 - Other specified postprocedural states (ICD-10) History of lumpectomy of left breast ?Z98.890 - Other specified postprocedural states (ICD-10) History of endometrial ablation ?Z98.890 - Other specified postprocedural states (ICD-10) Family History Unknown Alcohol dependence Cancer Other Diabetes High blood pressure Social History Narrative: Single, has a boyfriend alcohol ingestion, 1-4 drinks/week history of methamphetamine abuse- sober since 2016 smoker- half pack per day for several years Smoking Status: Current every day smoker What tobacco products do you use: cigarettes Smoking packs per day: 0.5 Smoking cigarettes per day: 10.0 Years smoked: 38 Smoking pack-years: 19.00 Do you use any of these nicotine containing products: None Second hand tobacco smoke exposure: Yes How often do you have a drink containing alcohol: 2-3 times a week How many standard drinks containing alcohol do you have on a typical day: 3 or 4 How often do you have six or more drinks on one occasion: Never AUDIT-C Alcohol total score: 4 Non-prescribed substance use: denies use Little interest or pleasure in doing things: not at all Feeling down, depressed, or hopeless: not at all service: No Exam Narrative: Exam Narrative: General: well nourished , NAD Head: Atraumatic and normocephalic ENT: External ears and external nose are normal. Tenderness with pressure on the tragus on the left, pain with insertion of the otoscope, external auditory canal is swollen, visualize tympanic membrane is normal in appearance, no significant cerumen impaction noted. No pain with mastoid palpation no redness or erythema over the mastoid. Eyes: Conjunctiva clear, pupils are equal reactive, external ocular motions are intact Neck: Full spontaneous range of motion of the neck Lungs: No respiratory distress Musculoskeletal: No tenderness or deformity Neurologic: No gross focal neurologic deficits Skin: No rashes Psych: Mood and affect are appropriate Const: Vital Signs, click to edit/add: Vital Signs - 24 hr 11/29/23 19:46 Temperature 99 F Pulse Rate [Pulse Oximeter] 87 Respiratory Rate 18 Blood Pressure [Ri ght Upper Arm] 136/87 Pulse Oximetry 97 Oxygen Delivery Me thod Room Air Course Course ED Course: Patient seen examined, presents today with left ear pain and fullness. On exam, swelling of external auditory canal with tenderness on insertion of the otoscope as well as tenderness with pressure on the tragus. No significant cerumen noted. Symptoms are most consistent with otitis externa. Patient started on Ciprodex drops, Tylenol and ibuprofen as needed for pain. Vital Signs Vital signs: Initial Vital Signs Temperature 99 F 11/29/23 19:46 Temperature Source Temporal Artery Scan 11/29/23 19:46 Pulse Rate 87 11/29/23 19:46 Respiratory Rate 18 11/29/23 19:46 Blood Pressure 136/87 11/29/23 19:46 Blood Pressure Mean 103 11/29/23 19:46 Pulse Oximetry 97 11/29/23 19:46 Oxygen Delivery Method Room Air 11/29/23 19:46 Vital Signs Temperature 99 F 11/29/23 19:46 Pulse Rate 87 11/29/23 19:46 Respiratory Rate 18 11/29/23 19:46 Blood Pressure 136/87 11/29/23 19:46 Pulse Oximetry 97 11/29/23 19:46 Oxygen Delivery Method Room Air 11/29/23 19:46 Temperature 99 F 11/29/23 19:46 Pulse Rate 87 11/29/23 19:46 Respiratory Rate 18 11/29/23 19:46 Blood Pressure 136/87 11/29/23 19:46 Pulse Oximetry 97 11/29/23 19:46 Oxygen Delivery Method Room Air 11/29/23 19:46 Discharge Plan Discharge Clinical Impression: External otitis of left ear Patient Disposition: Home, Self-Care Condition: Stable Instructions: Swimmer's Ear (ED) Additional Instructions: Take Tylenol and ibuprofen for pain Do not use Q-tips or ear rinses until your years feeling better Use antibiotic drops as prescribed Follow-up with your primary care doctor in 1 week Activity Level: Activity as Tolerated Discharge Diet: Regular Prescriptions: No Action urea 40 % cream 40 applic topical DAILY albuterol sulfate 90 mcg/actuation HFA aerosol inhaler 2 puff PO Q4H PRN (Reason: shortness of breath or wheezing) Qty: 8.5 5RF triamcinolone acetonide 0.1 % cream 1 applic topical BID Qty: 454 0RF Rx Instructions: apply to affected area azathioprine [Imuran] 50 mg tablet 50 mg PO BID Qty: 60 0RF ipratropium-albuterol 0.5 mg-3 mg(2.5 mg base)/3 mL solution for nebulization 3 ml inhalation QID Qty: 90 1RF (DME) disposable gloves [Nitrile Exam Gloves] Misc See Rx Instructions .Route Qty: 200 0RF Rx Instructions: As directed amlodipine 5 mg tablet 5 mg PO DAILY Qty: 90 2RF gabapentin 800 mg tablet 800 mg PO BID PRN (Reason: back pain) Qty: 180 1RF Follow Up/Referrals: Alberta Delacruz PA-C [Primary Care Provider] - Stand Alone Forms: [employer] Info Instructions
[2023-11-29] MEDS: IBUPROFEN 600 MG TABLET PO (20:22)
--- OUTSIDE RECORDS SUMMARY | 2023-11-29 20:23 | XMS_ITS | Referral Summary ---
Author Organization [facility] Address [address] [place] [address] Care Team Providers Care Shortage Worker Name Role Phone No Ref-Primary, Physician Primary Care Provider Allergies No known active allergies Social History Tobacco Use Types Packs/Day Years Used Date Smoking Tobacco: Never Assessed Sex and Gender Information Value Date Recorded Sex Assigned at Not on file Gender Identity Not on file Sexual Orientation Not on file Last Filed Vital Signs Vital Sign Reading Time Taken Comments Blood Pressure 165/100 11/15/2018 2:42 PM CDT Pulse - - Temperature 36.8 ??C (98.3 ??F) 11/15/2018 11:04 AM C DT Respiratory Rate 15 11/15/2018 2:42 PM CDT Oxygen Saturation 98% 11/15/2018 2:42 PM CDT Inhaled Oxygen Concentration - - Weight 60.8 kg (134 lb) 11/15/2018 11:04 AM CDT Height - - Body Mass Index - - Plan of Treatment Not on file Care Teams Shortage Worker Relationship Specialty Start Date End Date No Ref-Primary, Physician PCP - General 11/15/18
--- OUTSIDE RECORDS SUMMARY | 2023-11-29 20:23 | XMS_ITS | Clinical Summary ---
Author Organization [facility] Address [address] [place] [address] Care Team Providers Care Office Asst Name Role Phone No Ref-Primary, Physician Primary [...] of Treatment Not on file Care Teams Office Asst Relationship Specialty Start Date End Date No Ref-Primary, Physician PCP - General 11/15/18
== END 2023-11-29 20:29 | disposition home or self-care (01) ==
PROVIDERS: Emergency Provider Family Medicine; PCP Physician Assistant Medical
DX: H60.92 Unspecified otitis externa, left ear (principal)
CPT/HCPCS: 99283; A9270

== ENCOUNTER 2024-07-03 08:59 | Outpatient (CLI) | payer MEDICARE, SELFPAY ==
[2024-07-07 02:53] LABS: HPV Source Cervical/Vag; HPV, High Risk by TMA Not Detected
== END 2024-07-03 09:00 | disposition home or self-care (01) ==
PROVIDERS: PCP Physician Assistant Medical; Visit Provider Physician Assistant Medical
DX: Z00.01 Encounter for general adult medical examination with abnormal findings (principal); R87.610 Atypical squamous cells of undetermined significance on cytologic smear of cervix (ASC-US); R87.810 Cervical high risk human papillomavirus (HPV) DNA test positive; I10 Essential (primary) hypertension; E78.5 Hyperlipidemia, unspecified; Z13.29 Encounter for screening for other suspected endocrine disorder
CPT/HCPCS: 80053; 80061; 84443; 87624; 87625; 88141; 88142

== ENCOUNTER 2024-07-09 09:33 | Emergency (ER) | payer MEDICARE, SELFPAY ==
--- OUTSIDE RECORDS SUMMARY | 2024-07-09 09:35 | XMS_ITS | Clinical Summary ---
Author Organization [facility] Address [address] [place] [address] Care Team Providers Care Equipment Man Name Role Phone No Ref-Primary, Physician Primary Care Provider Allergies No known active allergies Social History Tobacco Use Types Packs/Day Years Used Date Smoking Tobacco: Never Assessed Comments Unknown Sex and Gender Information Value Date Recorded Sex Assigned at Not on file Legal Sex Female 3:14 AM [employer] Gender Identity Not on file Sexual Orientation Not on file Last Filed Vital Signs Vital Sign Reading Time Taken Comments Blood Pressure 165/100 11/15/2018 2:42 PM CDT Pulse - - Temperature 36.8 C (98.3 F) 11/15/2018 11:04 AM CDT Respiratory Rate 15 11/15/2018 2:42 PM CDT Oxygen Saturation 98% 11/15/2018 2:42 PM CDT Inhaled Oxygen Concentration - - Weight 60.8 kg (134 lb) 11/15/2018 11:04 AM CDT Height - - Body Mass Index - - Plan of Treatment Not on file Insurance MEDICARE Care Teams Equipment Man Relationship Specialty Start Date End Date No Ref-Primary, Physician PCP - General 11/15/18
[2024-07-09 09:36] VITALS: BP 123/84; PULSE 89; RESP 18; TEMP 36.9; O2SAT 96; BMI 24.0
--- NOTE | 2024-07-09 09:52 | CRLHL7_ITS ---
For Patients: As a result of the Century Cures Act, medical imaging exams and procedure reports are released immediately into your electronic medical record. You may view this report before your referring provider. If you have questions, please contact your health care provider. Indication: COPD, productive cough Comparison: Two-view chest January 20, 2023 Technique: PA and lateral views of the chest Findings: There is hyperinflation and chronic interstitial change similar to previous exam with basilar atelectasis and parenchymal scar. Mild emphysematous changes of the upper lobes. The cardiomediastinal silhouette is within normal limits. The bony thorax is grossly intact. Impression: Hyperinflation and chronic interstitial changes with mild emphysematous changes of the upper lobes again seen. No obvious dense consolidation. Dictated by Ayush Goss MD @ 07/09/2024 10:23:32 AM (Electronically Signed)
--- NOTE | 2024-07-09 09:54 | ED_ITS ---
HPI - General Adult General Chief complaint: Weakness Stated complaint: Cough, headache, weakness Time Seen by Provider: 07/09/24 09:45 History of Present Illness HPI narrative: This 54-year-old female comes in reporting productive cough and generalized weakness. Symptoms started a couple days ago. She has COPD and continues to smoke. She does have oxygen that she can use as needed at home but arrives here with normal vital signs. She also has inhalers and nebulizer treatments that she uses as needed. She does not report any fevers. Related Data Previous Rx's ?Medication ?Instructions ?Recorded disposable gloves (Nitrile Exam #200 ea 12/09/22 Gloves) gabapentin 800 mg tablet 800 mg PO BID PRN for low back 12/12/23 pain #180 tabs albuterol sulfate 90 mcg/actuation 2 puff PO Q4H PRN shortness of 07/03/24 aerosol inhaler breath or wheezing #8.5 grams amoxicillin 500 mg capsule 500 mg PO TID 7 days #21 caps 07/09/24 Allergies Allergy/AdvReac Type Severity Reaction Status Date / Time azithromycin Allergy Intermediate flu Verified 07/09/24 09:42 symptoms duloxetine Allergy Mild felt ill Verified 07/09/24 09:42 Review of Systems Status of ROS: Reports: 10 or more systems reviewed and unremarkable except as noted in History and below Narrative: Constitutional: No fevers, no weight gain or loss. Eyes: No discharge. No vision changes. HENT: No congestion, no sore throat, no ear pain. Cardiovascular: No chest pain, no palpitations. Respiratory: Productive cough. Some wheezes. Gastrointestinal: No abdominal pain, no vomiting, no diarrhea. Genitourinary: No dysuria, no hematuria. Musculoskeletal: Normal range of motion. Skin: No rashes, no pruritis. Neurological: No dizziness, sensory change, speech change. Endo/Heme/Allergies: No bruising or bleeding. No polydipsia. Pysch: no suicidality, no anxiety, no insomnia. All other systems reviewed and are negative. [facility] Medical History (Updated 07/09/24 @ 11:13 by Omid Chavarria MD) Bronchitis ?J40 - Bronchitis, not specified as acute or chronic (ICD-10) Aneurysm ?I72.9 - Aneurysm of unspecified site (ICD-10) Surgical History History of surgery of head ?Z98.890 - Other specified postprocedural states (ICD-10) History of colonoscopy ?Z98.890 - Other specified postprocedural states (ICD-10) Status post colposcopy (10/09/21) ?Z98.890 - Other specified postprocedural states (ICD-10) History of tubal ligation ?Z98.51 - Tubal ligation status (ICD-10) History of right knee surgery ?Z98.890 - Other specified postprocedural states (ICD-10) History of operative procedure on hip ?Z98.890 - Other specified postprocedural states (ICD-10) History of lumpectomy of left breast ?Z98.890 - Other specified postprocedural states (ICD-10) History of endometrial ablation ?Z98.890 - Other specified postprocedural states (ICD-10) Family History Unknown Alcohol dependence Cancer Other Diabetes High blood pressure Social History (Updated 07/03/24 @ 14:20 by Radha Neil ~ [facility]) Narrative: Single, has a boyfriend alcohol ingestion, 1-4 drinks/week history of methamphetamine abuse- sober since 2016 smoker- half pack per day for several years What is your current living situation?: I presently have a place to live In the past 12 months, utilities in danger of being shut off: no In past 12 months, lack of transportation kept you from medical appts, meetings, work, or getting things needed for daily living: no In the past 12 mos, have been you worried that your food would run out before you had money to buy more?: sometimes true In the past 12 mos, the food you bought just didn't last and you didn't have money to buy more?: sometimes true Smoking Status: Current every day smoker What tobacco products do you use: cigarettes Smoking packs per day: 0.5 Smoking cigarettes per day: 10.0 Years smoked: 38 Smoking pack-years: 19.00 Do you use any of these nicotine containing products: None Second hand tobacco smoke exposure: Yes How often do you have a drink containing alcohol: 2-3 times a week How many standard drinks containing alcohol do you have on a typical day: 3 or 4 How often do you have six or more drinks on one occasion: Never AUDIT-C Alcohol total score: 4 Non-prescribed substance use: denies use How often does anyone, including family, friends and others, physically hurt you : never How often does anyone, including family, friends and others, insult or talk down to you: frequently How often does anyone, including family, friends and others, threaten you with harm: never How often does anyone, including family, friends and others, scream or curse at you: sometimes service: No Health Related Social Needs: food insecurity (Z59.41) and Other personal risk factors, not elsewhere classified (Z91.89) Exam Narrative: Exam Narrative: Constitutional: Well-developed, well-nourished, no acute distress. HEENT: Normocephalic, atraumatic. Neck: Normal range of motion. Nontender. Supple. Heart: Regular. No murmurs. Normal rate. Intact distal pulses. Lungs: No chest discomfort. No rhonchi, or rales. Bilateral expiratory wheezes. Abdomen: Normal bowel sounds. Nontender. No rebound tenderness. Genitalia: Deferred. Back: No midline tenderness. Normal range of motion. Extremities: Normal range of motion. No injury. Skin: Intact. No rash. Warm. No erythema or pallor. Neurologic: No altered sensation. No weakness. Alert and oriented. Psychiatric: No suicidality. No anxiety or depression. No insomnia. Nursing notes and vitals signs are reviewed. Const: Vital Signs, click to edit/add: Vital Signs - 24 hr 07/09/24 09:36 07/09/24 10:00 Temperature 98.5 F Pulse Rate [Pulse Oximeter] 89 Respiratory Rate 18 Blood Pressure [Ri ght Upper Arm] 123/84 Pulse Oximetry 96 96 Oxygen Delivery Me thod Room Air Room Air Course Vital Signs Vital signs: Initial Vital Signs Temperature 98.5 F 07/09/24 09:36 Temperature Source Temporal Artery Scan 07/09/24 09:36 Pulse Rate 89 07/09/24 09:36 Respiratory Rate 18 07/09/24 09:36 Blood Pressure 123/84 07/09/24 09:36 Blood Pressure Mean 97 07/09/24 09:36 Blood Pressure Position Sitting 07/09/24 09:36 Pulse Oximetry 96 07/09/24 09:36 Oxygen Delivery Method Room Air 07/09/24 09:36 Vital Signs Temperature 98.5 F 07/09/24 09:36 Pulse Rate 89 07/09/24 09:36 Respiratory Rate 18 07/09/24 09:36 Blood Pressure 123/84 07/09/24 09:36 Pulse Oximetry 96 07/09/24 09:36 Oxygen Delivery Method Room Air 07/09/24 09:36 Temperature 98.5 F 07/09/24 09:36 Pulse Rate 89 07/09/24 09:36 Respiratory Rate 18 07/09/24 09:36 Blood Pressure 123/84 07/09/24 09:36 Pulse Oximetry 96 07/09/24 10:00 Oxygen Delivery Method Room Air 07/09/24 10:00 Medications Administered Medications: Discontinued Medications Generic Name Dose Route Start Last Admin Trade Name Freq PRN Reason Stop Dose Admin Albuterol/Ipratropium 1 neb 07/09/24 09:52 07/09/24 10:09 Iprat-Albut 0.5-2.5 Mg/3 Ml Neb IH 07/09/24 09:53 1 neb ONCE ONE Administration Dexamethasone 10 mg 07/09/24 09:52 07/09/24 10:07 Dexamethasone 10 Mg/Ml Inj PO 07/09/24 09:53 Not Given ONCE ONE Dexamethasone 10 mg 07/09/24 10:15 07/09/24 10:07 Dexamethasone 10 Mg/Ml Pf PO 07/09/24 10:16 10 mg ONCE ONE Administration Medical Decision Making MDM Narrative Medical decision making narrative: This patient comes in with productive cough for the past couple days. She has COPD and continues to smoke. Chest x-ray today shows no acute findings and nasal pharyngeal swab is also negative for viruses tested. The patient did receive a DuoNeb and an oral dose of dexamethasone. She does have some i ncreased risk for bacterial infection given her smoking and COPD history. I did provide prescription for amoxicillin for 7 days. Lab Data Labs: Lab Results 07/09/24 Range/Units 09:53 SARS-CoV-2 (PCR) Negative SARS-CoV-2 (Negative) Influenza Type A (PCR) Negative PCR FLU A (Negative) Influenza Type B (PCR) Negative PCR FLU B (Negative) RSV (PCR) Negative PCR RSV (Negative) Imaging Data Chest x-ray: Radiologist's impression: Hyperinflation and chronic interstitial changes with mild emphysematous changes of the upper lobes again seen. No obvious dense consolidation. Discharge Plan Discharge Clinical Impression: Acute lower respiratory infection Patient Disposition: Home, Self-Care Condition: Stable Additional Instructions: Take medication as prescribed. Use inhaled medications that she have at home also as needed. Smoking cessation is advised. Follow up with MD return if worsening. Prescriptions: New amoxicillin 500 mg capsule 500 mg PO TID 7 Days Qty: 21 0RF No Action albuterol sulfate 90 mcg/actuation HFA aerosol inhaler 2 puff PO Q4H PRN (Reason: shortness of breath or wheezing) Qty: 8.5 5RF (DME) disposable gloves [Nitrile Exam Gloves] Misc See Rx Instructions .Route Qty: 200 0RF Rx Instructions: As directed gabapentin 800 mg tablet 800 mg PO BID PRN (Reason: for low back pain) Qty: 180 11RF Follow Up/Referrals: Alberta Delacruz PA-C [Primary Care Provider] - Stand Alone [facility]
--- OUTSIDE RECORDS SUMMARY | 2024-07-09 09:58 | XMS_ITS | Clinical Summary ---
Author Organization [place] Address [address] [place] [id number] Care Team Providers Care Shift Nurse Manager Name Role Phone No Ref-Primary, Physician Primary Care Provider Allergies No known active allergies Social History Tobacco Use Types Packs/Day Years Used Date Smoking Tobacco: Never Assessed Comments Unknown Sex and Gender Information Value Date Recorded Sex Assigned at Not on file Legal Sex Female 3:14 AM [employer] Gender Identity Not on file Sexual Orientation [...] Not on file Insurance MEDICARE Care Teams Shift Nurse Manager Relationship Specialty Start Date End Date No Ref-Primary, Physician PCP - General 11/15/18
[2024-07-09 10:00] VITALS: O2SAT 96
[2024-07-09] MEDS: DEXAMETHASONE 10 MG/ML PF PO (10:07)
[2024-07-09] MEDS: IPRAT-ALBUT 0.5-2.5 MG/3 ML NEB 1 NEB IH (10:09)
[2024-07-09 10:51] LABS: PCR FLU A Negative PCR FLU A (Negative); PCR FLU B Negative PCR FLU B (Negative); PCR RSV Negative PCR RSV (Negative); SARS PCR* Negative SARS-CoV-2 (Negative)
== END 2024-07-09 11:16 | disposition home or self-care (01) ==
PROVIDERS: Emergency Provider Emergency Medicine Emergency Medical Services; PCP Physician Assistant Medical
DX: J22 Unspecified acute lower respiratory infection (principal); J44.0 Chronic obstructive pulmonary disease with (acute) lower respiratory infection; F17.210 Nicotine dependence, cigarettes, uncomplicated
CPT/HCPCS: 71046; 87631; 99284; J1100